=== PATIENT | male | born 1970 | race American Indian/Alaskan Native ===

== ENCOUNTER 2021-04-18 11:42 | Inpatient (IN) | payer BC ==
[2021-04-18 13:19] VITALS: BMI 26.9
[2021-04-18] MEDS ORDERED: BISMUTH SUBSALICYLATE 524 MG/30 ML PO PRN (15:52)
[2021-04-18] MEDS ORDERED: MENTHOL/PHENOL 1 EACH UD MM PRN (15:52)
[2021-04-18] MEDS ORDERED: MAGNESIUM HYDROX 2400MG/30ML ORAL SUSPENSION 30 ML CUP PO PRN (15:52)
[2021-04-18] MEDS ORDERED: MAG HYDROX/AL HYDROX/SIMETH 30 ML UNIT-DOSE CUP PO PRN (15:52)
[2021-04-18] MEDS ORDERED: ONDANSETRON *ODT* 4 MG TABLET SL PRN (15:52)
[2021-04-18] MEDS ORDERED: IBUPROFEN 400 MG TABLET (FP) PO PRN (15:52)
[2021-04-18] MEDS ORDERED: MAGNESIUM CITRATE 300 ML BOTTLE PO PRN (15:52)
[2021-04-18] MEDS ORDERED: NICOTINE 10 MG CARTRIDGE (INHALER) IH PRN (15:52)
[2021-04-18] MEDS ORDERED: ACETAMINOPHEN 325 MG TABLET (FP) PO PRN ×2 (15:52)
[2021-04-18] MEDS ORDERED: ALBUTEROL SO4 HFA INHALER IH PRN (15:57)
[2021-04-18] MEDS: NICOTINE POLACRILEX 4 MG GUM BUC PRN (16:51)
[2021-04-18] MEDS: hydrOXYzine PAMOATE 25 MG CAPSULE (FP) PO SCH ×2 (18:08→22:42)
[2021-04-18] MEDS: THIAMINE HCL 100 MG TABLET (FP) PO SCH (22:41)
[2021-04-18] MEDS: MELATONIN 5 MG TABLETS PO SCH (22:41)
[2021-04-19] MEDS: hydrOXYzine PAMOATE 25 MG CAPSULE (FP) PO SCH ×5 (07:23→22:00)
[2021-04-19] MEDS ORDERED: clonazePAM 0.5 MG ODT TABLETS SL PRN (10:10)
[2021-04-19] MEDS ORDERED: methaDONE HCL 10 MG TABLET (FOR DETOX USE ONLY) PO ONE ×2 (10:10→17:03)
[2021-04-19] MEDS ORDERED: cloNIDine HCL 0.1 MG TABLET PO PRN (10:10)
[2021-04-19] MEDS: NICOTINE 21 MG/24 HOURS TOPICAL PATCH TD SCH (11:14)
[2021-04-19] MEDS: PRENATAL VITAMINS W/ FOLIC ACID TABLET (FP) PO SCH (11:14)
[2021-04-19] MEDS: NICOTINE POLACRILEX 4 MG GUM BUC PRN ×2 (11:16→17:27)
[2021-04-19 13:52] LABS: HEMATOCRIT 44.9 % (35.4-49); HEMOGLOBIN 15.3 GM/dL (11.7-16.9); MCH 30.5 pg (25.7-33.7); MCHC 34.1 g/dl (32.0-35.9); MEAN CELL VOLUME 89.4 fl (80-96); PLATELET COUNT 277 10^3/uL (134-434); RBC 5.02 M/mm3 (4.00-5.60); RDW 13.4 % (11.9-15.9); WHITE BLOOD COUNT 7.4 K/mm3 (4.0-10.0)
[2021-04-19] MEDS ORDERED: BUPRENORPHINE/NALOXONE 2 MG/0.5 MG FILM PACKET SL ONE (14:00)
[2021-04-19 14:26] LABS: CALCIUM 9.3 mg/dL (8.5-10.1)
[2021-04-19 14:27] LABS: ALBUMIN 3.7 g/dl (3.4-5.0); BLOOD UREA NITROGEN 14.4 mg/dL (7-18)
[2021-04-19 14:29] LABS: BILIRUBIN,TOTAL 0.2 mg/dL (0.2-1)
[2021-04-19 14:30] LABS: CREATININE 1.1 mg/dL (0.55-1.3); TOT PROT 6.9 g/dl (6.4-8.2)
[2021-04-19 15:16] LABS: HIV INTERPRETATION NEGATIVE (NEGATIVE)
[2021-04-19] MEDS: MELATONIN 5 MG TABLETS PO SCH (22:00)
[2021-04-19] MEDS: THIAMINE HCL 100 MG TABLET (FP) PO SCH (22:00)
[2021-04-20] MEDS: hydrOXYzine PAMOATE 25 MG CAPSULE (FP) PO SCH ×2 (05:42→09:41)
[2021-04-20] MEDS: NICOTINE POLACRILEX 4 MG GUM BUC PRN ×2 (06:15→17:45)
[2021-04-20] MEDS ORDERED: methaDONE HCL 10 MG TABLET (FOR DETOX USE ONLY) ONE (09:13)
[2021-04-20] MEDS: PRENATAL VITAMINS W/ FOLIC ACID TABLET (FP) PO SCH (09:40)
[2021-04-20] MEDS: NICOTINE 21 MG/24 HOURS TOPICAL PATCH TD SCH (09:40)
[2021-04-20] MEDS ORDERED: HYDROCORTISONE 0.5% TOPICAL CREAM 30 GM TUBE TP PRN (13:21)
[2021-04-20] MEDS: hydrOXYzine PAMOATE 25 MG CAPSULE (FP) PO PRN (17:44)
[2021-04-20] MEDS: MELATONIN 5 MG TABLETS PO SCH (22:06)
[2021-04-20] MEDS: THIAMINE HCL 100 MG TABLET (FP) PO SCH (22:06)
[2021-04-20] MEDS: METHOCARBAMOL 500 MG TABLET PO PRN (22:07)
[2021-04-21] MEDS ORDERED: methaDONE HCL 10 MG TABLET (FOR DETOX USE ONLY) PO ONE ×2 (10:00)
[2021-04-21] MEDS: PRENATAL VITAMINS W/ FOLIC ACID TABLET (FP) PO SCH (10:11)
[2021-04-21] MEDS: NICOTINE 21 MG/24 HOURS TOPICAL PATCH TD SCH (12:30)
[2021-04-21] MEDS: MELATONIN 5 MG TABLETS PO SCH (22:18)
[2021-04-21] MEDS: THIAMINE HCL 100 MG TABLET (FP) PO SCH (22:18)
[2021-04-21] MEDS: METHOCARBAMOL 500 MG TABLET PO PRN (22:19)
[2021-04-22] MEDS ORDERED: methaDONE HCL 10 MG TABLET (FOR DETOX USE ONLY) ONE (09:36)
[2021-04-22] MEDS: NICOTINE 21 MG/24 HOURS TOPICAL PATCH TD SCH (10:18)
[2021-04-22] MEDS: PRENATAL VITAMINS W/ FOLIC ACID TABLET (FP) PO SCH (10:18)
[2021-04-22] MEDS: hydrOXYzine PAMOATE 25 MG CAPSULE (FP) PO PRN (17:52)
[2021-04-22] MEDS: METHOCARBAMOL 500 MG TABLET PO PRN (17:52)
[2021-04-22] MEDS: THIAMINE HCL 100 MG TABLET (FP) PO SCH (22:11)
[2021-04-22] MEDS: MELATONIN 5 MG TABLETS PO SCH (22:11)
[2021-04-22 23:23] VITALS: TEMP 97.1
[2021-04-23] MEDS: NICOTINE 21 MG/24 HOURS TOPICAL PATCH TD SCH (09:57)
[2021-04-23] MEDS: PRENATAL VITAMINS W/ FOLIC ACID TABLET (FP) PO SCH (09:58)
[2021-04-23] MEDS ORDERED: methaDONE HCL 10 MG TABLET (FOR DETOX USE ONLY) PO ONE ×2 (10:00)
[2021-04-23 10:59] VITALS: BP 125/80; PULSE 74
== END 2021-04-23 11:26 | disposition left against medical advice (07) | DRG 770 ==
LOC: YASAS 11:42 → Y3N 15:25 → UNDOADMIN 15:25
PROVIDERS: ADMIT Allergy & Immunology; ATTEND Allergy & Immunology
PROC: HZ2ZZZZ Detoxification Services for Substance Abuse Treatment (ICD-10-PCS; principal; 2021-04-18)
DX: F11.23 Opioid dependence with withdrawal (principal); F10.230 Alcohol dependence with withdrawal, uncomplicated; F14.20 Cocaine dependence, uncomplicated; F17.210 Nicotine dependence, cigarettes, uncomplicated; J45.909 Unspecified asthma, uncomplicated
CPT/HCPCS: 36415; 80053; 85027; 86780; 87389; 93005; 93010; C9803; J0735; U0003; U0005